=== PATIENT | male | born 1960 | race Hispanic/Latino ===

== ENCOUNTER → 2021-03-27 | Outpatient (CLI) | payer OTHER | END | disposition home or self-care (01) | LOC: SHCH 07:41 | PROVIDERS: ATTEND Internal Medicine Cardiovascular Disease | DX: R00.2 Palpitations (principal) | CPT/HCPCS: 93306 ==

== ENCOUNTER 2024-09-16 01:04 | Emergency (ER) | payer OTHER ==
[~2024-09-16] VITALS: Ht 182.9 cm; Wt 117.9 kg
--- NOTE | 2024-09-16 01:23 | ERN ---
ED Note History of Present Illness Stated Complaint: C/O RT LOWER BACK PAIN RADIATING DOWN RT LEG Chief Complaint: Back Pain-No Injury Time Seen by MD: 01:13 Dictation: PATIENT IS A 63-YEAR-OLD MALE COMING IN TODAY WITH NON TRAUMA RIGHT LATERAL LUMBAR PAIN THAT RADIATES DOWN HIS POSTERIOR RIGHT LEG TO THE ANTERIOR THIGH ONSET ONE WEEK AGO. HE STATES HE HAS BEEN WATCHING A FOOTBALL GAME WHEN HE WENT FROM SITTING ON A COUCH TO STANDING WHEN HE FELT THE PAIN. SAW HIS DOCTOR TWO DAYS AGO AND WAS PRESCRIBED TIZANIDINE 4 MG AND TOLD TO COME BACK IN A FEW DAYS IF THE PAIN WAS NOT BETTER FOR AN MRI. NO CHANGE IN BOWEL OR BLADDER FUNCTION. NO HISTORY OF PRIOR SURGERIES OR INJURIES. Allergies: Coded Allergies: No Known Allergies (Unverified Allergy, Unknown, 09/16/24) Past Medical History Past Medical History: High Cholesterol, Hypertension Surgical History: Unknown PSYCH History: no pertinent psych hx RN Note Reviewed/Agreed w/PFSH: Yes Review of System Dictation CONSTITUTIONAL: NEGATIVE EXCEPT FOR HPI HEAD/FACE: NEGATIVE EXCEPT FOR HPI EENT: NEGATIVE EXCEPT FOR HPI RESPIRATORY: NEGATIVE EXCEPT FOR HPI GASTROINTESTINAL/ABDOMINAL: NEGATIVE EXCEPT FOR HPI GENITOURINARY: NEGATIVE EXCEPT FOR HPI MUSCULOSKELETAL: NEGATIVE EXCEPT FOR HP RIGHT LATERAL LUMBAR TENDERNESS WITH SCIATICA INTEGUMENTARY: NEGATIVE EXCEPT FOR HPI NEUROLOGICAL/PSYCH: NEGATIVE EXCEPT FOR HPI HEMATOLOGIC/LYMPHATIC: NEGATIVE EXCEPT FOR HPI ALL SYSTEMS NEGATIVE, EXCEPT NOTED ABOVE. 13 POINT REVIEW OF SYSTEMS ASSESSED AND ALL NEGATIVE EXCEPT FOR ABOVE. Initial Vital Sign VS Vital Signs Date Time Temp Pulse Resp B/P (MAP) Pulse Ox O2 Delivery O2 Flow Rate FiO2 09/16/24 01:06 98.4 72 20 145/91 98 Room Air Physical Exam Dictation VITAL SIGNS REVIEWED GENERAL APPEARANCE: ALERT, ORIENTED X 3, MODERATE ACUTE DISTRESS, WELL DEVELOPED, NOURISHED. HEAD AND FACE: NON-TRAUMATIC. EYES: PERRL, PINK CONJUNCTIVAS, EYELID NO TRAUMA, ANTERIOR CHAMBER WITH ARCUS SENILIS. EARS: PINNAS INTACT AND NO SIGNS OF TRAUMA OR ERYTHEMA EAR CANALS CLEAR AND NO DISCHARGE TM NO ERYTHEMA NOSE: NO DISCHARGE, NO BLEEDING. OROPHARYNX: MOUTH NORMAL, TONGUE PINK, PHARYNX CLEAR,NO ERYTHEMA, TONSILS NO EXUDATES, NO ABSCESSES NOTED, MUCOUS MEMBRANE MOIST NECK: SUPPLE, NON-TENDER, NO THYROMEGALY, NO MASSES, NO JVD, NO BRUITS BREAST:DEFERRED CHEST:NO TENDERNESS, NO CREPITUS, NO PARADOXICAL MOVEMENT, NO RETRACTIONS LUNGS:CLEAR, WELL-VENTILATED, SYMMETRIC, NO RALES, NO WHEEZING, NO RHONCHI, NO STRIDOR, GOOD BREATH SOUNDS BILATERALLY HEART: REGULAR RATE, REGULAR RHYTHM, NO MURMUR, NO GALLOPS VASCULAR: NO PERIPHERAL EDEMA, ABDOMEN: SOFT, POSITIVE BOWEL SOUNDS, NONDISTENDED, NO GUARDING, NONTENDER, NO REBOUND, NO MASSES NO HEPATOMEGALY, NO SPLENOMEGALY, NO JACOB'S SIGN, NO HERNIAS. RECTAL: DEFERRED GENITAL: DEFERRED NEUROLOGICAL: NORMAL SPEECH, MOTOR FUNCTION INTACT, SENSORY FUNCTION INTACT MUSCULOSKELETAL: NECK NONTENDER, FULL RANGE OF MOTION RIGHT GLUTEAL TENDERNESS WITH POSITIVE STRAIGHT LEG RAISE RIGHT LEG 10 DEGREE EXTREMITIES: NONTENDER, FULL RANGE OF MOTION SKIN: COLOR PINK, DRY, NO TURGOR, NO RASH, NO LACERATIONS, NO ABRASIONS, NO CONTUSIONS. LYMPHATIC: DEFERRED Results (Laboratory/Radiology) Laboratory/Radiology Laboratory Tests Test 09/16/24 01:15 Urine Color YELLOW (YELLOW) Urine Appearance CLEAR (CLEAR) Urine pH 5.5 (5.0-8.0) Urine Specific [place] 1.026 (1.001-1.031) Urine Protein 10 mg/dL (NEGATIVE) H Urine Glucose (UA) NEGATIVE mg/dL (NEGATIVE) Urine Ketones 5 mg/dL (NEGATIVE) H Urine Occult Blood NEGATIVE (NEGATIVE) Urine Nitrate NEGATIVE (NEGATIVE) Urine Bilirubin NEGATIVE mg/dL (NEGATIVE) Urine Urobilinogen 0.2 mg/dL (0.2-1.0) Urine Leukocyte Esterase NEGATIVE Peña/uL Labs Reviewed?: Yes ED Course ED Course Orders Procedure Category Date Status Time Lumbar Spine 2-3vws RAD 09/16/24 Taken 01:18 Cyclobenzaprine Hcl PHA 09/16/24 Complete (Cyclobenzaprine Hcl 01:30 Dexamethasone 4mg/Ml PHA 09/16/24 Complete 1ml Vial (Dexametha 01:30 Acetaminophen With PHA 09/16/24 Complete Codeine (Tylenol-Code 01:30 Ibuprofen 800 Mg Tab PHA 09/16/24 Complete (Motrin) 01:30 Urinalysis Profile LAB 09/16/24 In Process 01:22 Dexamethasone 4mg/Ml PHA 09/16/24 Complete 1ml Vial (Dexametha 01:30 Current Medications Medications (Trade) Dose Ordered Sig/Angelina Route PRN Reason Start Time Stop Time Status Last Admin Dose Admin Acetaminophen/ Codeine Phosphate (TYLenol-coDEINE TAB) 2 tab ONCE ONCE PO 09/16/24 01:30 09/16/24 01:31 DC 09/16/24 01:28 Cyclobenzaprine HCl (Cyclobenzaprine HCl) 10 mg ONCE ONCE PO 09/16/24 01:30 09/16/24 01:31 DC 09/16/24 01:27 Dexamethasone Sodium Phosphate (dexaMETHasone 4MG/ML 1ML VIAL) 4 mg ONCE ONCE IM 09/16/24 01:30 09/16/24 01:25 DC Dexamethasone Sodium Phosphate (dexaMETHasone 4MG/ML 1ML VIAL) 8 mg ONCE ONCE IM 09/16/24 01:30 09/16/24 01:31 DC 09/16/24 01:32 Ibuprofen (moTRIN) 800 mg ONCE ONCE PO 09/16/24 01:30 09/16/24 01:31 DC 09/16/24 01:27 Vital Signs Date Time Temp Pulse Resp B/P (MAP) Pulse Ox O2 Delivery O2 Flow Rate FiO2 09/16/24 01:06 98.4 72 20 145/91 98 Room Air 0210/PATIENT'S PAIN IS MARKEDLY REDUCED AFTER TREATMENT. PATIENT DISCHARGED HOME WITH A ACUTE LUMBAR PAIN WITH SCIATICA WE WILL BE GIVEN IBUPROFEN AND PREDNISONE, TOLD TO SEE HIS PRIMARY CARE DOCTOR FOR RECOMMENDED MRI Medical Decision Making MDM MEDICAL DISCHARGE MAKING BASED ON LUMBAR SPINE FILM AND URINALYSIS TO RULE OUT URINARY ETIOLOGY FOR PAIN UA NEGATIVE LUMBAR SPINE SHOWS NO FRACTURE DISCHARGED HOME WITH A ACUTE SCIATICA WITH LUMBAR PAIN DX & DISP Disposition: Discharge Departure Impression: Primary Impression: Back pain of lumbosacral region with sciatica Condition: Stable Scripts Omeprazole (Omeprazole) 40 Mg Capsule.dr 1 CAP PO DAILY for 30 Days, #30 CAP 0 Refills Prov: TODD GARCIA [employer]NA[employer] 09/16/24 Ibuprofen (Ibuprofen 800 mg Tab) 800 Mg Tab 800 MG PO Q8H PRN for fever or pain, #30 TAB 0 Refills Prov: TODD GARCIA [employer] MA[employer] 09/16/24 Prednisone (Prednisone) 20 Mg Tablet 1 TAB PO AD for 6 Days, #14 TAB 0 Refills TAKE 1 TAB BY MOUTH THREE TIMES PER DAY X3 DAYS, THEN TAKE 1 TAB BY MOUTH TWICE A DAY X2 DAYS, THEN TAKE 1 TAB BY MOUTH ONCE A DAY X1 DAY. Prov: TODD GARCIA NP 09/16/24 Additional Instructions: FOLLOW-UP WITH PRIMARY CARE PROVIDER IN 1 TO 2 DAYS. TAKE MEDICATIONS DIRECT ED HERE IN THE EMERGENCY ROOM. OKAY TO CONTINUE HOME MEDICATIONS UNLESS OTHERWISE DISCUSSED DURING YOUR VISIT IN THE EMERGENCY ROOM TODAY. RETURN TO YOUR NEAREST EMERGENCY ROOM IF SYMPTOMS WORSEN OR IF THERE IS NO IMPROVEMENT. CALL 911 IF YOU NEED IMMEDIATE ASSISTANCE. TAKE TYLENOL OR MOTRIN [id number] NEEDED AND IF NO CONTRAINDICATIONS ARE PRESENT. INCREASE ORAL HYDRATION. A WOUND CULTURE OR URINE CULTURE WAS ORDERED HERE IN THE EMERGENCY ROOM DEPARTMENT PLEASE FOLLOW-UP WITH PRIMARY CARE PROVIDER AND ADVISE THEM TO GET REPEAT PORTS FROM OUR FACILITY. IF YOU HAD ANY ALEJANDRO WRAP/SPLINTS THAT WERE APPLIED HERE, PLEASE DO NOT REMOVE THEM UNTIL YOU SEE YOUR PRIMARY CARE OR SPECIALTY. TAKE PREDNISONE DIRECTED UNTIL GONE. TAKE IBUPROFEN EVERY 8 HOURS WITH FOOD FOR THE NEXT THREE DAYS. CONTINUE TIZANIDINE FROM YOUR DOCTOR. SEE YOUR PRIMARY CARE DOCTOR IN 1-2 DAYS FOR RECOMMENDED MRI Referrals: VICKEY SEN MD (PCP) Time of Disposition: 02:13 I have reviewed the case, and I agree with, Diagnosis and Plan TODD GARCIA NP Sep 16, 2024 01:23
[2024-09-16] MEDS: CYCLOBENZAPRINE HCL 10 MG TABLET PO ONE (01:27)
[2024-09-16] MEDS: dexaMETHasone SOD PHOSPHATE 4 MG/ML 1ML VIAL IM ONE ×2 (01:27→01:32)
[2024-09-16] MEDS: ibuPROFEN 800 MG TAB PO ONE (01:27)
[2024-09-16] MEDS: acetaMINOPHEN WITH coDEINE 1 TAB TAB PO ONE (01:28)
[2024-09-16 01:52] LABS: APPEARANCE,URINE CLEAR (CLEAR); BILIRUBIN,URINE NEGATIVE (NEGATIVE); COLOR,URINE YELLOW (YELLOW); GLUCOSE, URINE (UA) NEGATIVE (NEGATIVE); KETONES,URINE 5 mg/dL (NEGATIVE); LEUKOCYTE ESTERASE ,URINE NEGATIVE Leu/uL (NEGATIVE); NITRATE,URINE NEGATIVE (NEGATIVE); OCCULT BLOOD,URINE NEGATIVE (NEGATIVE); PH,URINE 5.5 (5.0-8.0); PROTEIN,URINE 10 mg/dL (NEGATIVE); UROBILINOGEN,URINE 0.2 mg/dL (0.2-1.0)
[2024-09-16 02:11] LABS: ADD UA MICROSCOPIC YES
[2024-09-16 02:12] LABS: MUCUS,URINE RARE LPF (None Seen); WBC,URINE 0-1 /HPF (0-1)
[2024-09-16] MEDS ORDERED: IBUP-2077 PO (02:14)
[2024-09-16] MEDS ORDERED: PRED20TA3 PO (02:14)
[2024-09-16] MEDS ORDERED: OMEP40CA21 PO (02:14)
[2024-09-16 03:10] VITALS: BP 142/86; PULSE 74; RESP 16; TEMP 98.4; O2SAT 98
--- NOTE | 2024-09-16 09:18 | HMCIMG ---
EXAM: LUMBAR SPINE 2-3VWS REASON: SEVERE RIGHT LATERAL LUMBAR PAIN WITH SCIATICA ONSET A WEEK AGO. COMPARISON: None. TECHNIQUE: 3 views of the lumbar spine were obtained. FINDINGS: There is marked interspace narrowing at L5-S1 consistent with degenerative change. There is 3 mm anterior subluxation of L4 in relation to L5, there is early calcification of the disc annulus. There are some degenerative changes of the facets at L4-5 and L5-S1. Remaining vertebral bodies appear unremarkable. Alignment is otherwise negative and remaining disc spaces are preserved. Soft tissues appear unremarkable. IMPRESSION: 1. Marked narrowing of the L5-S1 interspace consistent with degenerative change. 2. Degenerative change at the L4-5 and L5-S1 facets, there is also a 3 mm anterior subluxation of L4 on L5.
[2024-09-16] MEDS ORDERED: LOSA100T59 PO (15:14)
[2024-09-16] MEDS ORDERED: TAMS-1 PO (15:14)
[2024-09-16] MEDS ORDERED: ASPI-1005 PO (15:14)
[2024-09-16] MEDS ORDERED: ROSU5TAB51 PO (15:14)
[2024-09-16] MEDS ORDERED: MVIT PO (19:18)
[2024-09-16] MEDS ORDERED: CETI10TA57 PO (19:18)
[2024-09-16] MEDS ORDERED: TIZA-211 PO (19:18)
== END 2024-09-16 03:13 | disposition home or self-care (01) ==
LOC: EDH 01:04
DX: M54.41 Lumbago with sciatica, right side (principal); E78.00 Pure hypercholesterolemia, unspecified; I10 Essential (primary) hypertension
CPT/HCPCS: 99284; 81001; 72100; 96372; J1100 ×2